=== PATIENT | female | born 1980 | race Caucasian/White ===

== ENCOUNTER 2019-02-17 16:38 | Emergency (ER) | payer OTHER ==
[~2019-02-17] VITALS: Ht 162.6 cm; Wt 156.5 kg
[~2019-02-17 16:38] MED LIST: ACCUNEB SO1.25 MG/1 INH; ALDACTONE50 MG PO; ALLOPURINOL 10100 M1 PO; ALLOPURINOL 30300 M2 PO; BACTRIM DS TAB1 EACH PO; CIPRO500 MG PO; COLACE100 MG; COREG25 MG PO; DIFLUCAN10 MG/ML; ED A HIST PO; FLEXERIL PO; FLOMAX0.4 MG PO; FORTEO750 MCG/3 SUBQ; HUMIRA40 MG/0.1 SQ; HYDROCODON-ACE1 EAC7 PO; HYDROCODONE-AP1 EAC6 PO; IBUPROFEN 600600 M1 PO; IMITREX 50 MG T50 MG PO; KEFLEX500 MG PO; LEVOTHYROXIN0.125 M1 PO; LEVSIN0.125 MG PO; LISINOPRIL10 MG PO; LOPRESSOR50 PO; LOSARTAN-HCTZ1 EAC2 PO; NEURONTIN 300300 M1 PO; NORVASC5 MG PO; PERCOCET; PERCOCET 7.5-31 EACH PO; PERCOCET PO; PHENAZOPYRIDIN200 M2 PO; TOPAMAX 100 MG100 MG PO; VITAMIN D 5050000 I1 PO; VOLTAREN GEL 1100 G2 TOP; ZESTORETIC 20-1 EACH PO; ZOFRAN ODT4 MG PO; ZPAK
[2019-02-17] MEDS ORDERED: PERCOCET 10-321 EACH PO (16:53)
[2019-02-17] MEDS ORDERED: NASAL ALLERGY16.9 ML PO (16:54)
[2019-02-17] MEDS ORDERED: PROTONIX 20 MG20 M1 PO (16:54)
[2019-02-17] MEDS ORDERED: MS CONTIN 30 MG30 MG PO (16:54)
[2019-02-17] MEDS ORDERED: CENTANY30 GM TOP (18:01)
[2019-02-17] MEDS ORDERED: BACTRIM DS TAB1 EACH PO (18:01)
[2019-02-17 18:27] VITALS: BP 143/62
== END 2019-02-17 18:28 | disposition home or self-care (01) ==
LOC: M.ERS 16:38
DX: L02.211 Cutaneous abscess of abdominal wall (principal); I10 Essential (primary) hypertension; E03.9 Hypothyroidism, unspecified; G43.909 Migraine, unspecified, not intractable, without status migrainosus; Z90.710 Acquired absence of both cervix and uterus; Z87.442 Personal history of urinary calculi; Z90.49 Acquired absence of other specified parts of digestive tract

== ENCOUNTER 2019-07-20 08:45 | Emergency (ER) | payer OTHER ==
[~2019-07-20] VITALS: Ht 162.6 cm; Wt 142.9 kg
[~2019-07-20 08:45] MED LIST changes: +CENTANY30 GM TOP; +MS CONTIN 30 MG30 MG PO; +NASAL ALLERGY16.9 ML PO; +PERCOCET 10-321 EACH PO; +PROTONIX 20 MG20 M1 PO
[2019-07-20] MEDS ORDERED: DOXYCYCLINE 10100 M1 PO (10:27)
[2019-07-20 10:41] VITALS: BP 96/57
== END 2019-07-20 10:41 | disposition home or self-care (01) ==
LOC: M.ERS 08:45
DX: N61.1 Abscess of the breast and nipple (principal); G43.909 Migraine, unspecified, not intractable, without status migrainosus; I10 Essential (primary) hypertension; E03.9 Hypothyroidism, unspecified; N80.9 Endometriosis, unspecified; Z90.710 Acquired absence of both cervix and uterus; Z90.49 Acquired absence of other specified parts of digestive tract; Z87.442 Personal history of urinary calculi